=== PATIENT | male | born 1935 | race Hispanic/Latino ===

== ENCOUNTER 2019-02-27 09:21 | Day surgery (SDC) | payer MEDICARE ==
[2019-02-27] MEDS ORDERED: NACL 0.9% 50 ML ONE (09:56)
[2019-02-27] MEDS ORDERED: BOTOX ONE (10:33)
--- NOTE | 2019-02-27 10:33 | Anesthesia Consultation ---
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
--- NOTE | 2019-02-27 10:36 | Anesthesia Day of Surgery ---
Anesthesia Day of Surgery - Day of Surgery Patient Examined: Yes Patient H&P Reviewed: Yes Patient is NPO: Yes Cardiac Clearance: Yes (Verbal per pt)
[2019-02-27] MEDS ORDERED: ZOFRAN IV PRN (10:39)
[2019-02-27] MEDS ORDERED: LACTATED RINGERS 1,000 ML IV SCH (11:00)
[2019-02-27] MEDS ORDERED: XYLOCAINE MPF 2% ONE (11:55)
[2019-02-27] MEDS ORDERED: DIPRIVAN 10 MG/ML IV ONE (11:55)
[2019-02-27] MEDS ORDERED: ANCEF/STERILE WATER 2 GM/20 ML IV NR (12:00)
[2019-02-27] MEDS ORDERED: BOTOX ID ONE (12:25)
[2019-02-27] MEDS ORDERED: ZOFRAN ONE (12:26)
[2019-02-27] MEDS ORDERED: LASIX ONE (12:34)
--- NOTE | 2019-02-27 12:37 | Post Operative Note ---
Date of procedure: 02/27/19 Pre-op diagnosis: incontinence Post-op diagnosis: same Findings: open bn Procedure: cysto botox 100 iu Anesthesia: AWAIS Surgeon: ELOISE SHAH Estimated blood loss: minimal Pathology: none Condition: stable Disposition: PACU
--- NOTE | 2019-02-27 12:38 | Discharge Summary ---
Short Stay Discharge Plan Activity: other (no straining ) Weight Bearing Status: Full Weight Bearing Diet: low fat, low salt Special Instructions: other (teach [facility] ) Durable Medical Equipment Needed Upon Discharge: other (bar[place]osa) Follow up with: MICAH WALKER [Other] - 7 Days ELOISE SHAH MD [Staff Physician] - 03/03/19
--- NOTE | 2019-02-27 12:55 | Post Anesthesia Evaluation ---
- Post Anesthesia Evaluation Patient Participated: Yes Airway Patent: Yes Stable Respiratory Function: Yes Nausea/Vomiting: No Temp > 96.8F: Yes Pain Manageable: Yes Adequeate Hydration: Yes Anesthesia Complications: No
[2019-02-27] MEDS: SUBLIMAZE IV PRN ×2 (13:09→13:20)
--- NOTE | 2019-02-27 13:10 | Operative Report ---
PREOPERATIVE DIAGNOSIS: Urinary urge incontinence. POSTOPERATIVE DIAGNOSIS: Urinary urge incontinence. PROCEDURE: Cystoscopy, retrogrades, 100 units injection of Botox. SURGEON: Cash Strickland MD ANESTHESIA: General. FINDINGS: This is a gentleman with progressive urge incontinence. He now presents for 100 units of Botox. DESCRIPTION OF PROCEDURE: The patient was brought to the operating room and placed on the operating table. Following induction of anesthesia, placed in lithotomy position, prepped and draped in usual sterile fashion. Cystourethroscopy showed an open bladder neck. There was slight narrowing at the bulbomembranous junction, which was easily bypassed with the scope. A 100 units was diluted of the Botox and approximately 13 injections were given. No significant bleeding. There was a little oozing from the prostatic urethra, which was cauterized. Retrograde showed good clear efflux on each side, delicate collecting system. The patient tolerated the procedure well. Barragan catheter was easily placed. He was brought to recovery in stable condition. JOB# [id number] KINGS/CLARENCE
[2019-02-27 15:11] VITALS: BP 122/74
--- NOTE | 2019-02-27 15:45 | Fluoroscopy Report ---
FLUOROSCOPY RETROGRADE UROGRAPHY HISTORY: Overactive bladder. FINDINGS: Fluoroscopy was provided by radiology during retrograde urography by the report urologist. 4 fluoroscopic images were saved. The images demonstrate normal-appearing renal collecting systems bi laterally. Fluoroscopy time: 0.22 minutes. No filling defect or abnormal dilatation is identified. Prostate fulguration was performed per the op erative notes. Please correlate with the procedural note by urology as needed. IMPRESSION: Bilateral retrograde pyelogram within normal limits. Signer Name: Srini Manley Jr, MD Signed: 02/27/2019 3:40 PM Workstation Name: [id number]
== END 2019-02-27 14:55 | disposition home or self-care (01) ==
LOC: OR 09:21
PROVIDERS: ATTEND Urology
DX: N39.41 Urge incontinence (principal); N18.9 Chronic kidney disease, unspecified; I25.10 Atherosclerotic heart disease of native coronary artery without angina pectoris; F32.9 Major depressive disorder, single episode, unspecified; H40.9 Unspecified glaucoma; M19.90 Unspecified osteoarthritis, unspecified site; Z88.6 Allergy status to analgesic agent; Z88.5 Allergy status to narcotic agent; Z79.82 Long term (current) use of aspirin; Z79.899 Other long term (current) drug therapy; Z98.890 Other specified postprocedural states; Z95.5 Presence of coronary angioplasty implant and graft
CPT/HCPCS: 52287; 74420; C1758; J0585; J0690; J1940; J2405; J2704; J3010; J7120; Q9967